=== PATIENT | female | born 1990 | race Two or more races ===

== ENCOUNTER 2024-10-08 16:40 | Emergency (ER) | payer MEDICAID, SELFPAY ==
--- NOTE | 2024-10-08 17:11 | EDNOTE_ITS ---
<Statement entered by Nicole Summers MD - 10/08/24 23:42> As co-signing physician, I was present and available for consult prn. I concur with the plan and care as documented by the midlevel provider. ED Medical Clearance RME/HPI General Stated complaint: MEDICAL CLEARANCE Time Seen by Provider: 10/08/24 16:47 Arrival date/time: 10/08/24 16:40 RME / HPI RME / HPI Narrative: 34-year-old female patient was brought in by law enforcement for retirement clearance. Apparently patient was picked up today very high EMS, shouting and very restless while in the triage, while in the retirement they cannot get the vital signs due to moving around all the time. Patient is denying any complaints. 2 days ago according to the law enforcement patient was placed in the retirement due to drug paraphernalia found in her belongings. No other pertinent information can be extracted at this time. She is not answering question other than shouting nonsense. Related Information Previous Rx's ?Medication ?Instructions ?Recorded acetaminophen 650 mg 650 mg PO Q8H PRN fever or p ain 03/25/24 tablet,extended release #30 tabs diphenhydramine HCl 25 mg capsule 25 mg PO TID PRN cou gh #30 caps 03/25/24 (Banophen) naproxen 500 mg tablet 500 mg PO BID PRN pain #30 t abs 03/25/24 Allergies Allergy/AdvReac Type Severity Reaction Status Date / Time codeine Allergy Severe itching Verified 03/24/21 17:25 Review of Systems Review of Systems ROS Unobtainable: unobtainable due to mental status and unobtainable due to medical condition ED Exam Narrative Physical exam: VITAL SIGNS: Reviewed. GENERAL APPEARANCE: Alert and violent, restless, shouting, in no acute distress HEAD AND FACE: Non-traumatic. ENT: PERRL, pink conjunctivitis, eyelid no trauma, Mucous membrane moist. NECK: Supple, nontender, no nuchal rigidity. CHEST: No tenderness, no crepitus, no paradoxical movement, no retractions. LUNGS: Clear, well ventilated, symmetric, no rales, no wheezing, no ronchi, no stridor, good breath sounds bilaterally. HEART: Regular rate, regular rhythm, no murmur, no gallops. ABDOMEN: Soft, positive bowel sounds, nondistended, no guarding, nontender, no rebound, no masses, RECTAL: Deferred. GENITAL: Deferred. NEUROLOGICAL: Gross motor function intact sensory function intact, Appropriate for age. MUSCULOSKELETAL: low back nontender, full range of motion. EXTREMITIES: Nontender, full range of motion. SKIN: Color pink, dry, no rash, no lacerations, no abrasions, no contusions. LYMPHATICS: Deferred. Course Quality Measures none Orders Category Date Time Status DiphenhydrAMINE INJ [Benadryl Inj] Med 10/08/24 17:10 Discontinued 50 mg IM X1 ONE Haloperidol Lactate [Haldol Inj] Med 10/08/24 19:01 Discontinued 5 mg IM X1 ONE LORazepam [Ativan Inj] Med 10/08/24 17:10 Discontinued 2 mg IM X1 ONE LORazepam [Ativan Inj] Med 10/08/24 19:01 Discontinued 2 mg IM X1 ONE Vital Signs Vital signs: Vital Signs Temperature 98.8 F 10/08/24 19:54 Pulse Rate 86 10/08/24 19:54 Respiratory Rate 20 10/08/24 19:54 Blood Pressure 129/72 10/08/24 19:54 Pulse Oximetry (%) 95 10/08/24 19:54 Oxygen Delivery Method Room Air 10/08/24 19:54 Medical Clearance MDM Narrative MDM Narrative:: 34-year-old female patient was brought in by law enforcement for retirement clearance. Apparently patient was picked up today very high EMS, shouting and very restless while in the triage, while in the retirement they cannot get the vital signs due to moving around all the time. Patient is denying any complaints. 2 days ago according to the law enforcement patient was placed in the retirement due to drug paraphernalia found in her belongings. No other pertinent information can be extracted at this time. She is not answering question other than shouting nonsense. Patient was given Ativan Haldol and Benadryl because we cannot get her vital signs. Patient blood pressure was noted to be 139/72, heart rate of 86. O2 sat 95%. Patient is medically cleared for incarceration Patient data External records reviewed:: None Clinical information provided by:: patient and law enforcement Social determinants that could affect healthcare access:: substance use Patient has the following chronic illnesses:: None How is presenting disease/condition affected by chronic disease/condition?: no chronic disease Evaluation data The following diagnostics were reviewed and interpreted by me:: other (specify) Lab and/or radiology exams considered but not ordered:: None Interpretation Summary: None Medications / Prescriptions Medications or Prescriptions considered but not ordered:: None Medication administrations:: Medication Administration History Discontinued Medications Diphenhydramine HCl (Diphenhydramine Inj 50 Mg/Ml Vial) 50 mg IM X1 ONE Stop: 10/08/24 17:11 Last Admin: 10/08/24 17:28 Dose: 50 mg Documented By: Haloperidol Lactate (Haloperidol Lact Inj 5 Mg/Ml Vial) 5 mg IM X1 ONE Stop: 10/08/24 19:02 Last Admin: 10/08/24 19:17 Dose: 5 mg Documented By: Lorazepam (Lorazepam 2 Mg/Ml Vial) 2 mg IM X1 ONE Stop: 10/08/24 17:11 Last Admin: 10/08/24 17:28 Dose: 2 mg Documented By: Lorazepam (Lorazepam 2 Mg/Ml Vial) 2 mg IM X1 ONE Stop: 10/08/24 19:02 Lorazepam Haldol Benadryl Consultations Consultation(s) initiated? (list below): No Diagnosis Medical Clearance Differential Diagnosis: other (Medical clearance for incarceration, methamphetamine abuse) Most likely diagnosis given after review of the tests above:: Medical clearance Admission Indicated Admission indicated?: not indicated Admission Request Was there a request for admission?: No Disposition Plan Disposition Plan: Discharge Discharge Attestation Discharge Attestation: Patient condition: Stable Discharge Plan Plan Patient Disposition: Alf/Court/Law Disposition Comment: Stable Prescriptions/Referrals Prescriptions/Med Rec: No Action naproxen 500 mg tablet 500 mg PO BID PRN (Reason: pain) Qty: 30 0RF acetaminophen 650 mg tablet extended release 650 mg PO Q8H PRN (Reason: fever or pain) Qty: 30 0RF diphenhydramine HCl [Banophen] 25 mg capsule 25 mg PO TID PRN (Reason: cough) Qty: 30 0RF Referrals: No Primary/Family,Physician [Primary Care Provider] - In 1 week Problem List Clinical Impression: Medical clearance for incarceration Patient/Caregiver Discharge Instructions Discharge Activity: activity as tolerated Education Materials: Reducing Your Health Risks ... Additional Instructions: Thank you for the opportunity for serving you today. You are stable for discharged . Print Language: [place] RUSH/SLOOP CAPTAIN Supervising Physician PA/SLOOP CAPTAIN Supervising Physician: MD Melina
[2024-10-08] MEDS: DiphenhydrAMINE INJ 50 MG/ML VIAL IM (17:28)
[2024-10-08] MEDS: LORazepam 2 MG/ML VIAL IM (17:28)
[2024-10-08] MEDS: HALOPERIDOL LACT INJ 5 MG/ML VIAL IM (19:17)
[2024-10-08 19:54] VITALS: BP 129/72; PULSE 86; RESP 20; TEMP 37.1; O2SAT 95
== END 2024-10-08 20:37 ==
PROVIDERS: Emergency Provider Emergency Medicine
DX: Z02.89 Encounter for other administrative examinations (principal); Z65.3 Problems related to other legal circumstances
CPT/HCPCS: 96372; 99283; J1200; J1630; J2060